=== PATIENT | male | born 1940 | race Caucasian/White ===

== ENCOUNTER 2018-03-27 06:07 | Day surgery (SDC) | payer MEDICARE ==
[2018-03-26 11:20] VITALS: BMI 28.0
--- NOTE | 2018-03-27 07:27 | HP ---
HISTORY OF PRESENT ILLNESS: This is a 77-year-old male who comes for EGD and a colonoscopy . The patient has had abdominal pain over the last 2 months. The pain is in the epigastric area. T he pain occurs off and on. At times it is worse after meals and at times it is worse on an empty sto mach. History of weight loss of 30 pounds. There is some mild nausea. No vomiting. He also had a colon cancer surgery, I believe about 12 years ago. Last colonoscopy was done in 2010. The patient comes for EGD because of abdominal pain, weight loss and for a colonoscopy because of previous colon cancer surgery. ALLERGIES: None. MEDICAL ILLNESSES: 1. Hypertension. 2. Gout. 3. History of kidney stones. 4. Cardiac arrhythmia. PHYSICAL EXAMINATION: VITAL SIGNS: Pulse is 70, blood pressure 130/70. HEENT: Conjunctivae clear. CARDIOVASCULAR: First and second heart sounds normal. LUNGS: Clear to auscultation. ABDOMEN: Soft to palpate. No organomegaly. Abdomen is tender over the epigastric area and periumbi lical area. There is no rebound or guarding. EXTREMITIES: Reveal no edema. ADMITTING DIAGNOSES: Abdominal pain, weight loss, history of colon cancer with previous surgery. PLAN: EGD and colonoscopy.
[2018-03-27] MEDS ORDERED: Scopolamine 1.5 mg/72 hour Patch ONE (07:33)
[2018-03-27 09:24] LABS: #Basophils 0.1 thou/uL (0.0-0.2); #Eosinphils 0.1 thou/uL (0.0-0.7); #Lymphocytes 1.7 thou/uL (1.20-3.40); #Monocytes 0.8 thou/uL (0.11-0.59); #Neutrophils 4.6 thou/uL (1.40-6.50); %Monocytes 10.5 % (0.0-10.0); %Neutrophils 64.4 % (42.0-75.0); Hemoglobin 14.8 g/dL (14.0-18.0); Mean Corpuscular HGB CONC 33.9 g/dL (32.0-36.0); Mean Corpuscular Hemoglobin 31.6 pg (27.0-31.0); Mean Corpuscular Volume 93.2 fL (78.0-98.0); Mean Platelet Volume 7.3 fL (7.4-10.4); Platelet Count 198 thou/uL (130-400); Red Blood Cell (RBC) Count 4.68 mill/uL (4.70-6.10); White Blood Cell (WBC) Count 7.2 thou/uL (4.8-10.8)
[2018-03-27 09:34] LABS: ALT (SGPT) 12 U/L (8-55); AST (SGOT) 16 U/L (5-34); Albumin 4.1 g/dL (3.4-4.8); Alkaline Phosphatase 38 U/L (40-150); Anion Gap 13 mmol/L (10-20); BUN (Urea Nitrogen) 19 mg/dL (8.4-25.7); Bilirubin, Direct 0.4 mg/dL (0.1-0.3); Bilirubin, Total 0.9 mg/dL (0.2-1.2); Calc. Creatinine Clearance 58 mL/min (70-130); Calcium 9.6 mg/dL (7.8-10.44); Carbon Dioxide 26 mmol/L (23-31); Chloride 102 mmol/L (98-107); Estimated GFR-MDRD 53; Glucose 99 mg/dL (83-110); Potassium 3.7 mmol/L (3.5-5.1); Protein, Total 6.9 g/dL (5.8-8.1); Sodium 137 mmol/L (136-145)
[2018-03-27] MEDS ORDERED: Iopamidol 370 76% 50 ML VIAL FS ONE (11:17)
[2018-03-27] MEDS ORDERED: ISOVUE-370 76%-LOCM 1 ML ONE (11:17)
--- NOTE | 2018-03-27 12:49 | CT ---
CT ABDOMEN AND PELVIS WITH CONTRAST: HISTORY: Post EGD/colonoscopy. Unexplained weight loss and appetite loss. COMPARISON: CT abdomen and pelvis from 04/06/2015. FINDINGS: Some mild atelectatic changes in the lung bases. Calcified granuloma in the left lung base. No fernie cardial effusion. There is suture material at the sigmoid colon. No dilated loops of large or small bowel. No free in traperitoneal gas or fluid. The spleen, adrenal glands, and liver are unremarkable. Prior cholecystectomy. There are bilateral renal hypodensities. Prior ventral hernia repair. A 3 mm calculus, inferior rig ht renal collecting system. A 3 mm calculus, interpolar, right renal collecting system. In the inte rpolar, anterior cortex, left kidney, is a round mass, measuring approximately 40 Hounsfield units an d measuring up to 9 mm. This is too small to fully characterize on this examination. The aortoiliac contour is nonaneurysmal. No acute osseous abnormality. IMPRESSION: 1. No acute inflammatory process in the abdomen or pelvis. 2. No free intraperitoneal gas or fluid. 3. Incompletely evaluated somewhat hyperdense appearing mass, anterior cortex, interpolar left kidne y, may be a hemorrhagic or proteinaceous cyst, although a follow-up CT or MRI renal protocol is recom mended in six months. 4. Prior ventral hernia repair. 5. Small left-sided fat-containing indirect inguinal hernia. POS: [facility]
[2018-03-27] MEDS ORDERED: ePHEDrine/0.9% NaCl/PF SYRINGE 50 mg/10 ml ONE (13:37)
[2018-03-27] MEDS ORDERED: PROPOFOL 200 MG/20 ML VIAL ONE (13:37)
[2018-03-27] MEDS ORDERED: PHENYLEPHRINE-NS 100 MCG/ML 10 ML SYRINGE ONE (13:37)
[2018-03-27] MEDS ORDERED: Lidocaine 1% PF 5 ML VIAL ONE (13:37)
--- NOTE | 2018-03-27 20:18 | OP ---
DATE OF PROCEDURE: 03/27/2018 PROCEDURE PERFORMED: Esophagogastroduodenoscopy and biopsy. PREOPERATIVE DIAGNOSIS: A 77-year-old male with abdominal pain over the last 2 months. Th e pain was in the epigastric area. He has history of weight loss of 30 pounds. He has been tried on pantoprazole without any symptom relief. The patient is undergoing esophagogastroduodenoscopy. POSTOPERATIVE DIAGNOSES: 1. 2-3 small polyps in the duodenal bulb, appears benign. 2. Gastritis over gastric body and antrum. 3. Friable edematous gastroesophageal junction and lower esophagus, biopsied. PROCEDURE IN DETAIL: The patient was placed on his left lateral position and was given sedation by A nesthesia Department. A Pentax video gastroscope under direct vision was passed down the oropharynx, past the GE junction into the stomach, and subsequently into the descending duodenum. The vocal cor ds appeared healthy. The upper two-thirds of the mucosa appeared normal. Over the GE junction and d istal esophagus, there is mucosal edema and erythema noted. This was biopsied. The fundus and cardi a, no pathology seen. The gastric body and antrum shows mucosal hyperemia, edema, erythema. We biop sied upper gastric antrum and gastric body. The duodenal bulb showed 2-3 more polyps. These were bi opsied. The stomach was decompressed and the scope was removed. DISCHARGE PLANNING: A 77-year-old male with abdominal pain, weight loss, and also history of colon cancer many years ago. The patient underwent EGD and colonoscopy and polypectomy. There is no malignancy and weight loss. The plan is to obtain CBC, BMP, liver function tests, and also abdominal CAT scan later on today. I will make further recommendations after CAT scan.
--- NOTE | 2018-03-28 08:43 | OP ---
DATE OF SURGERY: 03/27/2018 OPERATIVE PROCEDURE: Colonoscopy with polypectomy, colonoscopy with heater probe therapy. 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 The patient is having abdominal pain and weight loss. The patient is undergoing colonoscopy. POSTOPERATIVE DIAGNOSES: 1. Sessile transverse colon polyp. 2. Sessile descending colon polyp. 3. Mild diverticular disease. 4. Hemorrhoids. OPERATIVE PROCEDURE IN DETAIL: The patient was placed on his left lateral position and was given sedation by Anesthesia Department. A rectal exam was done before the scope was advanced into the rectum. No lesions felt on rectal exam. A Pentax video colonoscope was introduced into the rectum and advanced all the way into the cecum. In the ileocecal area, cecum, ascending colon; no pathology seen. The prep was excellent. The mucosa appeared normal throughout the colon with normal vascular pattern. The transverse colon showed a sessile polyp. The polyp was removed with snare cautery; however, the cautery did not work and the patient had bleeding from the polypectomy site. A 7-[place] heater probe was used and the polypectomy site cauterized with good hemostasis. He had another sessile polyp of the descending colon and againremoved with cautery and has been cauterized with a 7-[place] probe to control the bleeding. The anastomotic area appears healthy. He had occasional diverticula over the anastomotic area and also transverse colon area. The rectum showed hemorrhoids. [facility]
== END 2018-03-27 11:00 | disposition home or self-care (01) ==
LOC: SDC 06:07
PROVIDERS: ATTEND Internal Medicine Gastroenterology
PROC: 0DB98ZX Excision of Duodenum, Via Natural or Artificial Opening Endoscopic, Diagnostic (ICD-10-PCS; principal; 2018-03-27)
PROC: 0DB68ZX Excision of Stomach, Via Natural or Artificial Opening Endoscopic, Diagnostic (ICD-10-PCS; 2018-03-27)
PROC: 0DB38ZX Excision of Lower Esophagus, Via Natural or Artificial Opening Endoscopic, Diagnostic (ICD-10-PCS; 2018-03-27)
PROC: 0DBM8ZX Excision of Descending Colon, Via Natural or Artificial Opening Endoscopic, Diagnostic (ICD-10-PCS; 2018-03-27)
PROC: 0DBL8ZX Excision of Transverse Colon, Via Natural or Artificial Opening Endoscopic, Diagnostic (ICD-10-PCS; 2018-03-27)
DX: Z12.11 Encounter for screening for malignant neoplasm of colon (principal); D12.3 Benign neoplasm of transverse colon; K57.30 Diverticulosis of large intestine without perforation or abscess without bleeding; K64.9 Unspecified hemorrhoids; K22.70 Barrett's esophagus without dysplasia; K29.50 Unspecified chronic gastritis without bleeding; K31.89 Other diseases of stomach and duodenum; K31.7 Polyp of stomach and duodenum; I10 Essential (primary) hypertension; M10.9 Gout, unspecified; Z85.038 Personal history of other malignant neoplasm of large intestine; Z79.899 Other long term (current) drug therapy; Z88.5 Allergy status to narcotic agent; Z88.8 Allergy status to other drugs, medicaments and biological substances; Z90.49 Acquired absence of other specified parts of digestive tract; Z98.890 Other specified postprocedural states
CPT/HCPCS: 36415; 74177; 80048; 80076; 85025; 88305; 88312; 88313; J2001; J2704